=== PATIENT | female | born 1965 | race Asian ===

== ENCOUNTER 2017-06-11 14:54 | Emergency (ER) | payer OTHER ==
[~2017-06-11] VITALS: Ht 165.1 cm; Wt 74.8 kg
[2017-06-11] MEDS ORDERED: SYNTHROID175 MCG (15:12)
== END 2017-06-11 20:24 | disposition home or self-care (01) ==
LOC: ER 14:54
DX: S93.402A Sprain of unspecified ligament of left ankle, initial encounter (principal); X50.3XXA Overexertion from repetitive movements, initial encounter; Y93.89 Activity, other specified; Y92.098 Other place in other non-institutional residence as the place of occurrence of the external cause; Y99.8 Other external cause status

== ENCOUNTER 2017-09-18 18:41 | Outpatient (CLI) | payer OTHER ==
[~2017-09-18 18:41] MED LIST: SYNTHROID175 MCG
== END 2017-09-18 19:22 | disposition home or self-care (01) ==
LOC: RAD 18:41
DX: S93.422S Sprain of deltoid ligament of left ankle, sequela (principal); S93.622S Sprain of tarsometatarsal ligament of left foot, sequela

== ENCOUNTER → 2017-09-26 | Outpatient (CLI) | payer OTHER | END | disposition home or self-care (01) | LOC: NUCLEAR 14:00 | DX: M85.88 Other specified disorders of bone density and structure, other site (principal); M81.0 Age-related osteoporosis without current pathological fracture ==

== ENCOUNTER 2017-11-14 08:25 | Outpatient (CLI) | payer OTHER | END 2017-11-14 08:36 | disposition home or self-care (01) | LOC: LAB 08:25 | DX: N95.1 Menopausal and female climacteric states (principal); E03.8 Other specified hypothyroidism ==

== ENCOUNTER 2017-11-14 09:03 | Outpatient (CLI) | payer OTHER | END 2017-11-14 09:14 | disposition home or self-care (01) | LOC: MAMO-SONO 09:03 | DX: Z12.31 Encounter for screening mammogram for malignant neoplasm of breast (principal); N60.11 Diffuse cystic mastopathy of right breast; N95.0 Postmenopausal bleeding ==

== ENCOUNTER 2019-09-24 15:29 | Emergency (ER) | payer OTHER ==
[~2019-09-24] VITALS: Ht 165.1 cm; Wt 74.8 kg
== END 2019-09-24 18:56 | disposition home or self-care (01) ==
LOC: ER 15:29
DX: S00.83XA Contusion of other part of head, initial encounter (principal); S70.01XA Contusion of right hip, initial encounter; W18.09XA Striking against other object with subsequent fall, initial encounter; Y93.89 Activity, other specified; Y92.098 Other place in other non-institutional residence as the place of occurrence of the external cause; Y99.8 Other external cause status